=== PATIENT | female | born 1985 | race Caucasian/White ===

== ENCOUNTER → 2016-12-31 | Outpatient (CLI) | payer OTHER ==
--- NOTE | 2016-12-31 16:25 | US ---
Transabdominal and Endovaginal Pelvic Sonography Clinical History: 31-year-old female with right lower quadrant pain for one month, and a history of o varian cysts. LMP: 12/05/2016. The patient is 0. ICD 10 Diagnostic Code: E28.9. TECHNIQUE: A curvilinear 5 MHz transducer was initially used to sonographically evaluate the pelvis, using a full urinary bladder as a window. To better assess the uterine architecture and the adnexal s tructures, endovaginal pelvic sonography was also performed. Color and spectral Doppler were used. Comparison: Pelvic sonography, dated 05/08/2016. Findings: Transabdominal Pelvic Sonography: The uterus is normal in size, shape, and position, measuring 8.0 x 4.0 x 3.4 cm. The right and left ovaries are normal. There is no free fluid. Endovaginal Pelvic Sonography: The endometrium is homogeneous, and measures 4.5 mm. There is no focal myometrial abnormality. The right ovary measures 4.4 x 2.5 x 2.4 cm. The left ovary measures 3.6 x 2 .0 x 2.8cm. There are no cystic or solid adnexal masses identified. A tiny hemorrhagic follicle is s een in association with the left ovary measuring 11 x 12 mm. Normal arterial blood flow is documented to both ovaries by Doppler ultrasound. The resistive index associated with the right ovary 0.52, and with the left ovary is 0.59. There is no free fluid in the pelvic cul-de-sac. Impression: Normal exam.
== END ==
LOC: BRMIMAGING 14:50
PROVIDERS: ATTEND Midwife
DX: R10.31 Right lower quadrant pain (principal); Z87.42 Personal history of other diseases of the female genital tract
CPT/HCPCS: 76856-PO

== ENCOUNTER → 2017-02-04 | Outpatient (CLI) | payer OTHER | LOC: FIMAGING 15:08 | PROVIDERS: ATTEND Obstetrics & Gynecology | DX: Z32.01 Encounter for pregnancy test, result positive (principal); Z3A.01 Less than 8 weeks gestation of pregnancy ==

== ENCOUNTER 2017-02-26 10:00 | Day surgery (SDC) | payer OTHER ==
[2017-02-26] MEDS ORDERED: LORazepam 2 MG/ML INJ IVP ONE (12:34)
[2017-02-26] MEDS ORDERED: KETOROLAC 30 MG/1 ML SDV IVP ONE (13:39)
[2017-02-26] MEDS ORDERED: fentaNYL 100 MCG/2 ML INJ ONE ×2 (14:15→15:15)
[2017-02-26] MEDS ORDERED: fentaNYL 100 MCG/2 ML INJ IVP ONE (15:00)
[2017-02-26] MEDS ORDERED: MIDAZOLAM 2 MG/2 ML VIAL ONE (15:11)
[2017-02-26] MEDS ORDERED: PROPOFOL 200 MG/20 ML VIAL ONE ×2 (15:15)
--- NOTE | 2017-02-26 18:25 | GOP ---
[f rep st] OPERATIVE REPORT DATE OF OPERATION: 02/26/2017 SURGEON: Joellen Martínez MD ANESTHESIA: MAC. ANESTHESIOLOGIST: Ozzy Goldsmith MD. PREOPERATIVE DIAGNOSIS: Embryonic demise at 8 weeks 6 days gestation, desiring D and C. POSTOPERATIVE DIAGNOSIS: Embryonic demise at 8 weeks 6 days gestation, desiring D and C. PROCEDURE PERFORMED: Suction dilation and curettage. FINDINGS: Small anteverted uterus. Ultrasound shows small gestational sac and embryo with no heart beat. Products of conception were evaluated after procedure and intact gestational sac was identified consistent with removal of all products of conception. Ultrasound was performed at the end of procedure confirming thin endometrial stripe with no evidence of retained products. SPECIMENS: Products of conception. ESTIMATED BLOOD LOSS: Minimal. INDICATIONS: Patient is a 31-year-old, G 1, P 0, at 8 weeks 6 days by LMP and first trimester ultrasound. She started spotting earlier in the week and came into the office and was found to have embryonic demise. She desired D and C for termination. She was also offered expectant and medical management. She took antibiotics at home the night before the procedure. The cervix was prepped at 400 mcg of misoprostol per vagina 6 hours prior to the procedure. Risks of the procedure were reviewed including pain, infection, bleeding, transfusion, injury to vagina, cervix or uterus, possible need for repeat procedure. She is Rh positive and no RhoGAM was indicated. DESCRIPTION OF PROCEDURE: Patient was taken to the operating room and MAC anesthesia was initiated. A surgical time out was performed. She was prepped and draped in the normal sterile fashion in the dorsal lithotomy position with Steve stirrups. A speculum was placed. The cervix was grasped at the anterior lip with a single tooth tenaculum. The cervix was easily dilated to 8.5 mm. An 8 mm curette was introduced into the uterus and suction was initiated, and the uterus was emptied. A gritty texture was noted 360 degrees and the procedure was completed. A transabdominal ultrasound was performed at this time confirming a thin uterine stripe with no evidence of retained products. The products were examined and noted to be consistent with gestational age and noted to be complete. There was minimal bleeding. Counts were correct x2. All instruments were removed. The patient was awakened and brought to the recovery room in stable condition. She will follow up in the office in 2 weeks. COMPLICATIONS: None. /[id number]/MODL MTDD
== END 2017-02-26 17:30 | disposition home or self-care (01) ==
LOC: UNDOADMOB 10:00 → FOBOP 10:00 → FLD 10:00 → UNDODISOB 17:30 → FOBOP 17:30 → EDSTATUS 17:57
PROVIDERS: ATTEND Obstetrics & Gynecology
PROC: 10D18ZZ Extraction of Products of Conception, Retained, Via Natural or Artificial Opening Endoscopic (ICD-10-PCS; principal; 2017-02-26)
DX: O02.1 Missed abortion (principal); Z88.1 Allergy status to other antibiotic agents; Z91.040 Latex allergy status
CPT/HCPCS: J1885; J2060; J2250; J2704; J3010

== ENCOUNTER → 2017-09-15 | Outpatient (CLI) | payer OTHER ==
[~2017-09-15] MED LIST: IOPAMIDOL (ISOVUE 370) 100 ML BTL IV ONE
== END ==
LOC: FIMAGING 12:42
PROVIDERS: ATTEND Obstetrics & Gynecology
DX: N92.0 Excessive and frequent menstruation with regular cycle (principal)
CPT/HCPCS: Q9967

== ENCOUNTER → 2018-04-21 | Outpatient (CLI) | payer OTHER | LOC: FIMAGING 07:53 | PROVIDERS: ATTEND Obstetrics & Gynecology | DX: Z36.89 Encounter for other specified antenatal screening (principal); Z3A.19 19 weeks gestation of pregnancy ==

== ENCOUNTER → 2018-08-01 | Outpatient (CLI) | payer OTHER | LOC: FIMAGING 13:54 | PROVIDERS: ATTEND Advanced Practice Midwife | DX: R56.9 Unspecified convulsions (principal); O09.513 Supervision of elderly primigravida, third trimester; Z3A.33 33 weeks gestation of pregnancy; Z87.820 Personal history of traumatic brain injury ==

== ENCOUNTER 2018-08-15 17:34 | Observation (INO) | payer OTHER ==
--- NOTE | 2018-08-15 18:02 | PDGENHP ---
History and Physical History and Physical: Care: [facility] HPI: Patient is a 33yo G @ 35-5 weeks that presents to L&D with complaints of regular kateryna shah x 2 days. She denies any painful contractions, LOF, Vb. She reports +FM. She denies any dysuria, urgency. She denies any fever/chills. EDC: 09/14/2018 which is based on LMP: 12/08/17 which is known and consistent with Ultrasound at 6 weeks. Her is complicated by: atypical seizures, rubella nonimmune Review of Systems: Constitutional: Denies any fever, chills, or fatigue HEENT: denies any visual changes, difficulty swallowing, hearing loss Cardiovascular: Denies any chest pain, palpitations, leg swelling Respiratory: denies any cough, wheezing, or shortness of breathe GI: Denies any nausea, vomiting, diarrhea, constipation, +kateryna shah : denies any dysuria, urgency, frequency, vaginal bleeding Musculoskeletal: denies any muscle or bone pain Skin: denies any rashes Neuro: denies any headache, seizures, lightheadedness, dizziness, or loss of consciousness Psychiatric: denies any depression, anxiety, or SI/HI thoughts HISTORY: Previous OB history: MAB 2017, chemical Past medical history: atypical seizures Past surgical history: LEEP, D&C, oral surgery Social: Denies any alcohol, tobacco, or drug use. Family history: Not relevant Medications: PNV Allergies (list reaction): morphine, latex, codeine LABS: Rh: O+ ABS: Neg Rubella: non Immune HbsAg: NR HIV: NR VDRL: NR 1hr: 113 GC: Neg Chlamydia: Neg Pap: Normal GBS: unknown PHYSICAL EXAM: Constitutional: WN, A&Ox3 HEENT: normocephalic atraumatic, supple Skin: Warm, dry, intact Heart: RRR, no murmur Chest: CTA-B Abdomen: Soft, nontender, gravid SVE: cl/th/high, posterior Extremities: no edema, negative homans sign Neuro: grossly normal Psych: normal affect assessment: FHT baseline 130 +accels, no decels, moderate variability Contractions: toco q 3-7, pt not feeling anything Assessment: 1) 33yo with IUP@ 35-5wks (L/6) 2) No evidence of PTL 3) GBS unknown 4) Cat 1 FHR tracing Plan: 1) UA/urine cx sent/pending 2) rapid GBS sent/pending 3) d/c home, keep sched appt 4) FKC and PTL Prec discussed Today's visit was approximately 30 min, of which >50% of visit 20 min, was spent face to face with pt on direct counseling/coordination of care.
== END 2018-08-15 18:42 | disposition home or self-care (01) ==
LOC: FLD 17:34
PROVIDERS: ADMIT Advanced Practice Midwife; ATTEND Advanced Practice Midwife
DX: O47.03 False labor before 37 completed weeks of gestation, third trimester (principal); Z3A.35 35 weeks gestation of pregnancy; O99.353 Diseases of the nervous system complicating pregnancy, third trimester; G40.89 Other seizures
CPT/HCPCS: 59025; G0378

== ENCOUNTER 2018-09-17 00:50 | Inpatient (IN) | payer OTHER ==
[2018-09-17] MEDS ORDERED: LIDOCAINE 1% 300 MG/30 ML SDV SC PRN (01:26)
[2018-09-17] MEDS ORDERED: IBUPROFEN 600 MG TAB PO PRN (01:26)
[2018-09-17] MEDS ORDERED: OXYTOCIN/RINGERS LACTATE 1,000 ML IV PRN (01:26)
[2018-09-17] MEDS ORDERED: MISOPROSTOL 200 MCG TAB PR PRN (01:26)
[2018-09-17] MEDS ORDERED: TERBUTALINE SULFATE 1 MG/ML VIAL IV PRN (01:26)
[2018-09-17] MEDS ORDERED: OLIVE OIL 118 ML BTL MISC PRN (01:26)
[2018-09-17] MEDS ORDERED: EPSOM SALT 454 GM TP PRN (01:26)
[2018-09-17] MEDS ORDERED: LR 1,000 ML IV PRN (01:26)
[2018-09-17] MEDS ORDERED: TERBUTALINE SULFATE 1 MG/ML VIAL ONE (01:31)
[2018-09-17] MEDS ORDERED: LIDOCAINE 1% 300 MG/30 ML SDV ONE (01:31)
[2018-09-17] MEDS ORDERED: AMMONIA AROMATIC 1 EACH AMP IH ONE (01:31)
[2018-09-17] MEDS ORDERED: MISOPROSTOL 200 MCG TAB ONE (01:31)
[2018-09-17] MEDS ORDERED: OXYTOCIN 10 UNIT/ML VIAL ONE (01:31)
[2018-09-17] MEDS ORDERED: OLIVE OIL 118 ML BTL ONE (01:31)
[2018-09-17 01:37] LABS: PLATELET COUNT 251 10^3/uL (150-400)
--- NOTE | 2018-09-17 01:42 | PDGENHP ---
History and Physical History and Physical: CARE: [facility] HPI: Patient is a 33 yo G 3 P 0 @ 40.3 weeks that presents to L&D with complaints of strong uterine contractions. EDC: 09/14/18 which is based on LMP: 12/08/17 which is known and consistent with Ultrasound at 6 weeks. Her is complicated by: h/o subchorionic hemorrhage, recurrent 1st trimester loss. Review of Systems: Constitutional: Denies any fever, chills, or fatigue HEENT: denies any visual changes, difficulty swallowing, hearing loss Cardiovascular: Denies any chest pain, palpitations, leg swelling Respiratory: denies any cough, wheezing, or shortness of breathe GI: Denies any nausea, vomiting, diarrhea, constipation : denies any dysuria, urgency, frequency, vaginal bleeding Musculoskeletal: denies any muscle or bone pain Skin: denies any rashes Neuro: denies any headache, seizures, lightheadedness, dizziness, or loss of consciousness Psychiatric: denies any depression, anxiety, or SI/HI thoughts HISTORY: Previous OB history: 2 first trimester AB Social history: , employed Family history: thyroid CA (mom), migraines (mom/sister), htn (grandparents) Past medical history: hx of trauma related seizures, hx of recurrent UTI, raynauds Past surgical history: wisdom teeth, D&C Medications: PNV Allergies (list reaction): NKDA LABS: Rh: O+ ABS: Neg Rubella: non- Immune HbsAg: NR HIV: NR VDRL: NR 1hr: 113 GC: Neg Chlamydia: Neg Pap: Normal GBS: neg BMI: (prepreg) <25 PHYSICAL EXAM: Constitutional: WN, A&Ox3 HEENT: normocephalic atraumatic, supple Heart: RRR, no murmur Chest: CTA-B Skin: warm, dry, intact Abdomen: Soft, nontender, gravid SVE: 9/90/-2 Extremities: trace edema, negative homans sign Neuro: grossly normal Psych: normal affect assessment: FHT baseline 135 +accels, variable decels, moderate variability Contractions: toco q 2 min Assessment: 1) 33 yo G 3 P 1 with IUP@ 40 w 2 d 2) active labor 3) GBS neg 4) Cat 1 FHR tracing Plan: 1) Admit to L&D 2) anticipate vag delivery
--- NOTE | 2018-09-17 03:12 | OBPROG ---
Labor Progress Note Assessment/Plan: Assessment: Active labor meconium stained fluid Plan: 09/17/18 03:10 Continue current management. NICU aware. Objective: 09/17/18 01:30 Patient ABO/Rh O POSITIVE 09/17/18 01:30 - SVE Dilation (cm): 9 Effacement (%): 90 Station: +1 Membranes: AROM Amniotic Fluid Color: Meconium Stained - Contraction Pattern Assessment Current Contraction Pattern: Regular - FHR Assessment Young FHR (bpm): 135 FHR Pattern Variability: Moderate FHR Category: 2 - Procedures Non-surgical Procedures: Amniotomy ICD10 Worksheet Patient Problems: Problems Problem Status Onset Normal labor Acute Term Acute - ICD10 Problem Qualifiers (1) Term (2) Normal labor
--- NOTE | 2018-09-17 05:16 | OBDEL ---
Info Type: Vaginal Presentation at Delivery: Vertex L&D Analgesia/Anesthesia Type: None GBS+: No - Care Provider Advertising Campaign Manager/ACTIVITIES CONCIERGE: Mel Wells - Hospital Course Intrapartum: 09/17/18 05:13 Mom progressed well to complete using financial administrator support and position change for comfort. Pushed well, FHT reassuring throughout second stage with occasional early decels and good return to baseline. Indications for Delivery: Spontaneous Labor Vaginal Delivery - Delivery Provider Delivery Physician/CNM: Esperanza Castillo - Labor and Delivery Onset of Contractions Date: 09/16/18 Onset of Contractions Time: 18:30 Onset of Contractions Type: Spontaneous Rupture of Membranes Date: 09/17/18 Rupture of Membranes Time: 02:30 Rupture of Membranes Type: Artificial Amniotic Fluid Color: Meconium Stained Dilation Complete Date: 09/17/18 Dilation Complete Time: 03:30 Placenta Delivery Date: 09/17/18 Placenta Delivery Time: 04:35 Total Hours of Labor: 10 Non-surgical Procedures: Amniotomy Data SILVIO: 09/14/18 Gestational Age: 40 week(s) and 3 day(s) Young Delivery Date: 09/17/18 Delivery Time: 04:28 Sex of Infant: Male Score (1 Min): 8 Score (5 Min): 9 ICD10 Worksheet Patient Problems: Problems Problem Status Onset (normal spontaneous vaginal delivery) Acute Normal labor Acute Term Acute - ICD10 Problem Qualifiers (1) (normal spontaneous vaginal delivery) (2) Normal labor (3) Term
[2018-09-17] MEDS ORDERED: DOCUSATE SODIUM 100 MG CAP PO PRN (05:22)
[2018-09-17] MEDS: ACETAMINOPHEN 325 MG TAB PO SCH ×3 (07:07→20:06)
[2018-09-17] MEDS: IBUPROFEN 600 MG TAB PO SCH ×2 (13:14→20:05)
[2018-09-17] MEDS ORDERED: HYDROCORTISONE 0.5% CREAM TP PRN (18:11)
[2018-09-18] MEDS: ACETAMINOPHEN 325 MG TAB PO SCH ×3 (01:59→13:09)
[2018-09-18] MEDS: IBUPROFEN 600 MG TAB PO SCH ×3 (01:59→13:09)
[2018-09-18 08:12] VITALS: BP 95/60
[2018-09-18] MEDS ORDERED: MEASLES,MUMPS&RUBELLA VACC/PF 0.5 ML VIAL SC ONE (11:39)
--- NOTE | 2018-09-18 12:30 | OBGCSDC ---
General Delivery Information - General Info : 3 Para: 1 Abortions: 0 Type: Vaginal L&D Analgesia/Anesthesia Type: Local Admission Date: 09/17/18 Labs: Patient ABO/Rh O POSITIVE 09/17/18 01:30 Hct 44.2 % (38.0-47.0) 09/17/18 01:30 - Hospital Course Intrapartum: 09/17/18 05:13 Mom progressed well to complete using line fisher support and position change for comfort. Pushed well, FHT reassuring throughout second stage with occasional early decels and good return to baseline. : 09/18/18 12:27 Breast feeding well, circ today, mom voiding well, perineum swollen but well healed. mom passing gas but no BM. VSS. Vaginal - Delivery Provider Delivery Physician/CNM: Esperanza Castillo - Diagnosis Labor: Spontaneous Rupture of Membranes Type: Artificial Amniotic Fluid Color: Meconium Stained - Procedures Non-surgical Procedures: Amniotomy - Delivery Non-surgical Procedures: Amniotomy Data SILVIO: 09/14/18 Gestational Age: 40 week(s) and 4 day(s) Young Delivery Date: 09/17/18 Delivery Time: 04:28 Sex of Infant: Male Hawkeye Weight (gm): 3256 g Score (1 Min): 8 Score (5 Min): 9 Discharge Information - Discharge Information Prescriptions: Ibuprofen [Motrin (*)] 600 mg PO Q6H #30 tab Condition: Good Instruction/Follow Up: Two Weeks, Four Weeks, Six Weeks
== END 2018-09-18 15:30 | disposition home or self-care (01) | DRG 807 ==
LOC: FLD 00:50 → OBSVTOIN 01:27 → FOB 06:48
PROVIDERS: ADMIT Advanced Practice Midwife; ATTEND Obstetrics & Gynecology
PROC: 10E0XZZ Delivery of Products of Conception, External Approach (ICD-10-PCS; principal; 2018-09-17)
PROC: 10907ZC Drainage of Amniotic Fluid, Therapeutic from Products of Conception, Via Natural or Artificial Opening (ICD-10-PCS; 2018-09-17)
DX: O48.0 Post-term pregnancy (principal); O77.0 Labor and delivery complicated by meconium in amniotic fluid; Z3A.40 40 weeks gestation of pregnancy; Z37.0 Single live birth; Z23 Encounter for immunization
CPT/HCPCS: J2590; J3105

== ENCOUNTER 2018-09-24 02:14 | Emergency (ER) | payer OTHER ==
[2018-09-24] MEDS ORDERED: NS 1,000 ML IV ONE (02:15)
--- NOTE | 2018-09-24 02:33 | EDPHY ---
H & P Stated Complaint: 1 week c/o rectal bleeding Time Seen by Provider: 09/24/18 02:33 HPI/ROS: HPI CHIEF COMPLAINT: Possible rectal bleeding possible hemorrhoidal bleeding. HISTORY OF PRESENT ILLNESS: 33-year-old female, presents emergency room stating that she thinks maybe her hemorrhoids bleeding. She reports that she just delivered vaginally 1 week ago. She did have a tear. 3 sutures placed. She also had hemorrhoids. She has been using hemorrhoidal cream. However she woke up to some blood on her lower back and she thinks it is from hemorrhoids. Patient does complain of nausea and dizziness. Past Medical History: Denies medical history Past Surgical History: Denies surgical history Social History: Denies drugs alcohol tobacco. Family History: Noncontributory ROS REVIEW OF SYSTEMS: 10 Systems were reviewed and negative with the exception of the elements mentioned in the history of present illness. Exam Constitutional appears well nontoxic triage nursing summary reviewed, vital signs reviewed, awake/alert. Eyes normal conjunctivae and sclera, EOMI, PERRLA. HENT normal inspection, atraumatic, moist mucus membranes, no epistaxis, neck supple/ no meningismus, no raccoon eyes. Respiratory clear to auscultation bilaterally, normal breath sounds, no respiratory distress, no wheezing. Cardiovascular rate normal, regular rhythm, no murmur, no edema, distal pulses normal. Gastrointestinal soft, non-tender, no rebound, no guarding, normal bowel sounds, no distension, no pulsatile mass. Genitourinary no CVA tenderness. Musculoskeletal no midline vertebral tenderness, full range of motion, no calf swelling, no tenderness of extremities, no meningismus, good pulses, neurovascularly intact. Skin pink, warm, & dry, no rash, skin atraumatic. Neurologic awake, alert and oriented x 3, AAOx3, moves all 4 extremities equally, motor intact, sensory intact, CN II-XII intact, normal cerebellar, normal vision, normal speech. Psychiatric normal mood/affect. Heme/Lymph/Immune no lymphadenopathy. Differential Diagnosis: Includes but is not limited to in a particular order vaginal bleeding, retained products, dysfunctional uterine bleeding, hemorrhoidal bleeding, bleeding from her suture site Medical Decision Making: Plan for this patient IV establishment blood draw check CBC and hemoglobin, electrolytes, ultrasound retained products, evaluate rectum and suture site. Re-evaluation: Blood work reviewed H&H stable. Vital signs stable. Ultrasound reviewed. Rectal exam performed: Aileen HURTADO at bedside, shows no evidence of blood. Digital rectal exam performed no evidence of blood or masses. There are some small internal hemorrhoids palpated. Vaginal exam performed without speculum given recent tears: Aileen baig There appears to be the posterior vaginal opening there appears to be a sutured tear. This appears to be where the blood is coming from as best as I can tell without speculum exam the patient did not want a speculum exam. There is additionally another suture up the right side of her vagina towards that at that appears clean, dry and intact. Given the bleeding has come from her vagina possibly 1 over lacerations, will consult OBGYN for further evaluation. The patient does report that a day or 2 ago she coughed and felt immediate pain down there. 0438: Discussed case in detail with the patient and at bedside. Additionally discussed this case in detail with Dr. Carroll. If the laceration is not bleeding on pelvic exam she believes a BE bleeding 7-10 days out which can be normal. She recommends Methergine 0.25 mg p. O. Q.6 hours for 48 hr. Additionally earlier when I was doing a pelvic exam without speculum this had an odor to it. She wonders if she has BV. I had a long discussion updated the patient that this may be normal bleeding after a week out of . However I did recommend doing a pelvic exam to make sure there is no laceration that is bleeding. The patient is agreed for this. 0500AM: Pelvic exam performed with speculum: Aileen HURTADO as jovanni, Sutures are in place on the lacerations. There is no open gaping wound. No bleeding. The main lacerations the posterior Fornix of vaginal opening, this lacerations intact. No opening. Sutures in place. Blood is coming from the cervix. Rather dark. No significant foul smell. Swab sent for wet prep and BV. Most likely the patient is having 7-10 day bleeding. Recommend Methergine by Dr. Carroll. 0.25mg PO Q6HR 48 hours. Source: Patient - Personal History Current Tetanus Diphtheria and Acellular Pertussis (TDAP): Yes - Medical/Surgical History Hx Asthma: No Hx Chronic Respiratory Disease: No Hx Diabetes: No Hx Cardiac Disease: No Hx Renal Disease: No Hx Cirrhosis: No Hx Alcoholism: No Hx HIV/AIDS: No Hx Splenectomy or Spleen Trauma: No Other PMH: allergies, past uti's, D&C 2017, hypoglycemic - Social History Smoking Status: Never smoked Constitutional: Initial Vital Signs Temperature (C) 36.9 C 09/24/18 02:20 Heart Rate 78 09/24/18 02:20 Respiratory Rate 16 09/24/18 02:20 Blood Pressure 112/74 09/24/18 02:20 O2 Sat (%) 98 09/24/18 02:20 O2 Delivery Mode Room Air Allergies/Adverse Reactions: codeine Allergy (Verified 02/26/17 11:17) Rash latex Allergy (Verified 02/26/17 11:18) Rash morphine Allergy (Verified 02/26/17 11:19) Other-Enter Comments Penicillins Allergy (Verified 02/26/17 11:17) Abdominal Pain Home Medications: Medication Instructions Recorded Ibuprofen [Motrin (*)] 600 mg PO Q6H #30 tab 09/18/18 Hydrocortisone 1% cream (*) 09/24/18 Methylergonovine Maleate 0.2 mg PO QID #8 tablet 09/24/18 [Methergine] Medical Decision Making - Data Points Laboratory Results: Laboratory Results 09/24/18 02:45 09/24/18 02:45 09/24/18 09/24/18 09/24/18 02:45 02:45 02:45 WBC 8.06 10^3/uL 10^3/uL (3.80-9.50) RBC 3.86 10^6/uL L 10^6/uL (4.18-5.33) Hgb 12.7 g/dL g/dL (12.6-16.3) Hct 37.8 % L % (38.0-47.0) MCV 97.9 fL fL (81.5-99.8) MCH 32.9 pg pg (27.9-34.1) MCHC 33.6 g/dL g/dL (32.4-36.7) RDW 12.6 % % (11.5-15.2) Plt Count 358 10^3/uL 10^3/uL (150-400) MPV 9.6 fL fL (8.7-11.7) Neut % (Auto) 57.9 % % (39.3-74.2) Lymph % (Auto) 30.4 % % (15.0-45.0) [place] % (Auto) 6.7 % % (4.5-13.0) Eos % (Auto) 2.2 % % (0.6-7.6) Baso % (Auto) 0.7 % % (0.3-1.7) Nucleat RBC Rel Count 0.0 % % (0.0-0.2) Absolute Neuts (auto) 4.66 10^3/uL 10^3/uL (1.70-6.50) Absolute Lymphs (auto) 2.45 10^3/uL 10^3/uL (1.00-3.00) Absolute Monos (auto) 0.54 10^3/uL 10^3/uL (0.30-0.80) Absolute Eos (auto) 0.18 10^3/uL 10^3/uL (0.03-0.40) Absolute Basos (auto) 0.06 10^3/uL 10^3/uL (0.02-0.10) Absolute Nucleated RBC 0.00 10^3/uL 10^3/uL (0-0.01) Immature Gran % 2.1 % H % (0.0-1.1) Immature Gran # 0.17 10^3/uL H 10^3/uL (0.00-0.10) PT 13.2 SEC SEC (12.0-15.0) INR 0.98 (0.83-1.16) APTT 29.5 SEC SEC (23.0-38.0) Sodium 136 mEq/L mEq/L (135-145) Potassium 4.4 mEq/L mEq/L (3.3-5.0) Chloride 108 mEq/L mEq/L (97-110) Carbon Dioxide 23 mEq/l mEq/l (22-31) Anion Gap 5 mEq/L L mEq/L (6-14) BUN 17 mg/dL mg/dL (7-23) Creatinine 0.8 mg/dL mg/dL (0.6-1.0) Estimated GFR > 60 Glucose 83 mg/dL mg/dL (70-100) Calcium 8.7 mg/dL mg/dL (8.5-10.4) Medications Given: Discontinued Medications Sodium Chloride (Ns) 1,000 mls @ 0 mls/hr IV EDNOW ONE; Wide Open PRN Reason: Protocol Stop: 09/24/18 02:16 Last Admin: 09/24/18 02:43 Dose: 1,000 mls Departure - Departure Disposition: Home, Routine, Self-Care Clinical Impression: Vaginal bleeding Condition: Good Instructions: Bleeding (ED) Additional Instructions: 1. Please follow up with her street openings inspector. 2. Return emergency room if you have any questions or concerns you do not feel well or if you have significant bleeding. Referrals: NONE *PRIMARY CARE P,. [Primary Care Provider] - As per Instructions Haily Carroll DO [Doctor of Osteopathy] - As per Instructions Prescriptions: Methylergonovine Maleate [Methergine] 0.2 mg PO QID #8 tablet
[2018-09-24 03:02] LABS: PLATELET COUNT 358 10^3/uL (150-400)
[2018-09-24 03:10] LABS: INR 0.98 (0.83-1.16); PROTIME(PATIENT) 13.2 SEC (12.0-15.0)
[2018-09-24 05:15] VITALS: BP 113/62
== END 2018-09-24 06:05 | disposition home or self-care (01) ==
DX: N93.9 Abnormal uterine and vaginal bleeding, unspecified (principal); E86.9 Volume depletion, unspecified